=== PATIENT | male | born 1980 | race Two or more races ===

== ENCOUNTER 2017-06-28 17:48 | Emergency (ER) | payer OTHER ==
[~2017-06-28] VITALS: Ht 167.6 cm; Wt 93.0 kg
[~2017-06-28 17:48] MED LIST: AZITHROMYCIN250 MG ORAL; CEPHALEXIN500 MG ORAL; CLINDAMYCIN HC150 MG ORAL; IBUPROFEN600 MG ORAL; NORCO 5-325 TA1 EACH ORAL; PREDNISONE20 MG ORAL; VENTOLIN HFA18 GM INH
[2017-06-28] MEDS ORDERED: Bacitracin Oint UD TOPIC ONE (18:15)
[2017-06-28] MEDS ORDERED: Lidocaine 1% MPF 10mg/ml 5ml INJ ONE (18:15)
[2017-06-28 18:46] VITALS: BP 101/68
[2017-06-28] MEDS ORDERED: CEPHALEXIN500 MG ORAL (18:53)
[2017-06-28] MEDS ORDERED: LAMISIL15 GM TOPIC (18:53)
[2017-06-28] MEDS ORDERED: IBUPROFEN600 MG ORAL (18:53)
[2017-06-28 19:04] VITALS: BP 101/68
--- NOTE | 2017-06-28 20:21 | Emergency Room Report ---
History of Present Illness General Chief Complaint: Animal Bite Source: Patient Present Illness [facility] The patient is a 37-year-old male presenting for possible insect bites on the right hip and burning/itching of the feet. The patient first noticed a burning pain between the toes 1 month prior described as a 7/10 pain. Does not radiate. He also states that it is very itchy. He has not tried any medications yet. He then noticed a red area on the right hip 3 days prior with a central elevation. This has been growing in size. Pain is a 5/10 dull ache and is worse with touch. He is unsure what caused this but states he thinks was a spider. He did not see any insect. He denies any other symptoms including nausea, vomiting, fever, chills, shortness of breath, chest pain Allergies: Coded Allergies: PENICILLINS (Verified Allergy, Mild, 07/23/15) Patient History Past Medical History: see triage record Pertinent Family History: none Reviewed Nursing Documentation: PMH: Agreed, PSxH: Agreed Nursing Documentation-PMH Hx Asthma: Yes History Of Psychiatric Problem: Yes - bipolar Review of Systems All Other Systems: negative except mentioned in HPI Physical Exam Vital Signs Date Time Temp Pulse Resp B/P (MAP) Pulse Ox O2 Delivery O2 Flow Rate FiO2 06/28/17 17:53 98.2 90 101/68 96 Room Air 06/28/17 18:46 14 Sp02 EP Interpretation: reviewed, normal General Appearance: no apparent distress, alert, GCS 15, non-toxic Head: normocephalic, atraumatic Eyes: bilateral eye normal inspection, bilateral eye PERRL ENT: hearing grossly normal, normal pharynx, no angioedema, normal voice Neck: full range of motion, supple/symm/no masses Respiratory: chest non-tender, lungs clear, normal breath sounds, speaking full sentences Cardiovascular #1: regular rate, rhythm, no edema Musculoskeletal: back normal, gait/station normal, normal range of motion, non- tender Neurologic: alert, oriented x3, responsive Psychiatric: judgement/insight normal, memory normal, mood/affect normal, no suicidal/homicidal ideation Skin: rash - 2cm in diameter fluctuant, erythematous mass of R lateral hip. TTP. Central opening, other - maceration with erythematous base between toes Lymphatic: no adenopathy Procedures Incision and Drainage Incision and Drainage : Consent: Verbal Site: R hip Blade Size: 11 I & D Procedure: betadine prep, sterile drapes applied Wound Location: lower extremity - R lateral hip Wound's Depth, Shape: superficial Wound Length (cm): 2 Wound Explored: contaminated Irrigated w/ Saline (ccs): 100 Anesthesia: 1% Lidocaine Volume Anesthetic (ccs): 2 Splint Applied?: No Sling Applied?: No Patient Tolerated: Well Complications: None Medical Decision Making PA Attestation Dr. Leal is my supervising physician. Patient management was discussed with my supervising physician Diagnostic Impression: Primary Impression: Abscess Additional Impression: Tinea pedis Qualified Codes: B35.3 - Tinea pedis ER Course The patient is a 37-year-old male presenting for tinea pedis and abscess Differential diagnosis considered not limited to: Abscess, cellulitis, insect bite, tinea, among others Physical exam reveals tinea pedis and 2 cm in diameter abscess of the right hip with Central fluctuance, Tenderness to palpation, erythema. Betadine prep was used to clean the skin and surrounding area. One percent lidocaine without epinephrine was used to anesthetize the area of planned incision. A #11 blade was used to make an incision in the central area of fluctuance approximately 1/2 the size of the diameter of the abcess. Once the incision was made, purulent material was expressed with blood. Blunt dissection was then used to release loculations and expressed more purulent material. Once only blood appeard to be expressed from the incision, normal saline was used to irrigate the inside of the abscess. The wound was then cleaned and dressing applied. The patient is discharged home with a prescription for Keflex and Lamisil. He will follow up with primary doctor. ER precautions are given Last Vital Signs Date Time Temp Pulse Resp B/P (MAP) Pulse Ox O2 Delivery O2 Flow Rate FiO2 06/28/17 19:04 90 14 101/68 90 Room Air 06/28/17 18:46 98.2 Status: improved Disposition: HOME, SELF-CARE Condition: Improved Scripts Terbinafine (Lamisil At) 12 Gm Cream..g. 1 APPL TOPIC BID for 28 Days, #12 GM 1 Refill Prov: MARGIE LONG P.A. 06/28/17 Cephalexin* (KEFLEX*) 500 Mg Capsule 500 MG ORAL EVERY 12 HOURS, #14 CAP 0 Refills Prov: MARGIE LONG 06/28/17 Ibuprofen* (MOTRIN*) 600 Mg Tablet 600 MG ORAL Q8H Y for For Pain, #30 TAB 0 Refills Prov: MARGIE LONG 06/28/17 Patient Instructions: Abscess, Athlete's Foot Additional Instructions: I discussed my findings with the patient. All questions and concerns have been answered. Treatment and medication compliance have been addressed. I advised the patient that they need to follow up with PMD in 3-5 days. Return to ED if symptoms worsen, new symptoms arise, or if needed for any reason. Patient verbalized understanding of discharge instructions. MARGIE LONG Jun 28, 2017 20:21
== END 2017-06-28 19:10 | disposition home or self-care (01) ==
LOC: EMR 18:16
DX: L02.415 Cutaneous abscess of right lower limb (principal); J45.909 Unspecified asthma, uncomplicated; F31.9 Bipolar disorder, unspecified; Z88.0 Allergy status to penicillin; B35.3 Tinea pedis
CPT/HCPCS: 10060; 99284

== ENCOUNTER 2017-07-19 18:47 | Emergency (ER) | payer OTHER ==
[~2017-07-19] VITALS: Ht 167.6 cm; Wt 97.5 kg
[~2017-07-19 18:47] MED LIST changes: +LAMISIL15 GM TOPIC
[2017-07-19 19:08] VITALS: BP 130/73
[2017-07-19] MEDS ORDERED: CORTISPORIN EAR10 ML RIGHT EAR (19:32)
[2017-07-19] MEDS ORDERED: PROMETHAZI6.25 MG/1 ORAL (19:32)
[2017-07-19] MEDS ORDERED: OMEPRAZOLE20 M2 ORAL (19:32)
[2017-07-19] MEDS ORDERED: PREDNISONE20 MG ORAL (19:32)
[2017-07-19] MEDS ORDERED: AQUAPHOR OINTM396 GM TP (19:32)
[2017-07-19 19:37] VITALS: BP 130/73
--- NOTE | 2017-07-19 22:15 | Emergency Room Report ---
History of Present Illness General Chief Complaint: General Complaint Source: Patient Present Illness HPI The patient is a 37-year-old male Presenting for multiple complaints including dry feet, right ear pain, asthma, and vomiting. He no distress he 1 month prior with cracking of the heels. He denies any other symptoms this area. Right ear pain began 2 days prior described as 8/10 dull ache and does not radiate. Worse with touch. He denies any changes in hearing. Patient states that he has asthma and has been using albuterol only at home which has not been helping. He states that he has been coughing more over the past week. He states that he's also had a burning in the chest with increased clear liquid in his mouth over the past week. He denies being diagnosed with GERD before. He denies any other symptoms including N, F, chills, [place], SOB, rash Allergies: Coded Allergies: PENICILLINS (Verified Allergy, Mild, 07/23/15) Patient History Past Medical History: see triage record Pertinent Family History: none Reviewed Nursing Documentation: PMH: Agreed, PSxH: Agreed Nursing Documentation-PMH Hx Asthma: Yes Review of Systems All Other Systems: negative except mentioned in HPI Physical Exam Vital Signs Date Time Temp Pulse Resp B/P (MAP) Pulse Ox O2 Delivery O2 Flow Rate FiO2 07/19/17 18:55 97.9 85 20 130/73 100 Room Air Sp02 EP Interpretation: reviewed, normal General Appearance: no apparent distress, alert, GCS 15, non-toxic Head: normocephalic, atraumatic Eyes: bilateral eye normal inspection, bilateral eye PERRL ENT: hearing grossly normal, normal pharynx, no angioedema, normal voice, other - R Ear EAC is edematous and erythematous. Tender. Neck: full range of motion, supple/symm/no masses Respiratory: chest non-tender, normal breath sounds, no retraction, no accessory muscle use, speaking full sentences, wheezing - diffuse, mild Cardiovascular #1: regular rate, rhythm, no edema Gastrointestinal: normal bowel sounds, non tender, soft, non-distended, no guarding, no rebound Rectal: deferred Musculoskeletal: back normal, gait/station normal, normal range of motion, non- tender Neurologic: alert, oriented x3, responsive, motor strength/tone normal, sensory intact, speech normal Psychiatric: judgement/insight normal, memory normal, mood/affect normal, no suicidal/homicidal ideation Skin: normal color, no rash, warm/dry, well hydrated Lymphatic: no adenopathy Medical Decision Making PA Attestation Dr. Conner is my supervising physician. Patient management was discussed with my supervising physician Diagnostic Impression: Primary Impression: GERD (gastroesophageal reflux disease) Qualified Codes: K21.9 - Gastro-esophageal reflux disease without esophagitis Additional Impressions: Otitis externa Qualified Codes: H60.501 - Unspecified acute noninfective otitis externa, right ear Dry skin dermatitis Asthma Qualified Codes: J45.909 - Unspecified asthma, uncomplicated ER Course The patient is a 37-year-old male Presenting for multiple complaints including dry feet, right ear pain, asthma, and Acid reflux DDx considered but not limited to: otitis media, otitis externa, pharyngitis, GERD, gastroenteritis, asthma, bronchitis, among others PE consistent with R ear otitis externa, asthma, GERD, and dry skin He is given prescriptions for these including Cortisporin, omeprazole, steroids , cough medication, and moisturizing ointment. Last Vital Signs Date Time Temp Pulse Resp B/P (MAP) Pulse Ox O2 Delivery O2 Flow Rate FiO2 07/19/17 19:08 97.9 85 20 130/73 100 Room Air Status: improved Disposition: HOME, SELF-CARE Condition: Improved Scripts Neomycin/Polymyxin B Sulf/Hc* (CORTISPORIN EAR SOLUTION*) 10 Ml Solution 4 DROP RIGHT EAR QID, #10 ML 0 Refills Prov: TERZIAN,MARGIE P.A. 07/19/17 Promethazine Hcl (PROMETHAZINE HCL*) 6.25 Mg/5 Ml Syrup 5 ML ORAL Q8H, #120 ML 0 Refills Prov: TERZIAN,MARGIE P.A. 07/19/17 Prednisone* (PREDNISONE*) 20 Mg Tablet 40 MG ORAL DAILY, #10 TAB Prov: TERZIAN,MARGIE P.A. 07/19/17 Mineral Oil/Hydrophil Petrolat (AQUAPHOR OINTMENT) 396 Gm Oint...g. 1 APPLIC TP TID, #400 GM Prov: TERZIAN,MARGIE P.A. 07/19/17 Omeprazole (OMEPRAZOLE) 20 Mg Capsule.dr 20 MG ORAL DAILY, #30 CAP Prov: TERZIAN,MARGIE P.A. 07/19/17 Patient Instructions: Asthma, Adult, Otitis Externa Additional Instructions: I discussed my findings with the patient. All questions and concerns have been answered. Treatment and medication compliance have been addressed. I advised the patient that they need to follow up with PMD in 3-5 days. Return to ED if symptoms worsen, new symptoms arise, or if needed for any reason. Patient verbalized understanding of discharge instructions. MARGIE LONG Jul 19, 2017 22:15
== END 2017-07-19 19:37 | disposition home or self-care (01) ==
LOC: EMR 19:16
DX: K21.9 Gastro-esophageal reflux disease without esophagitis (principal); H60.91 Unspecified otitis externa, right ear; L30.9 Dermatitis, unspecified; J45.909 Unspecified asthma, uncomplicated; Z88.0 Allergy status to penicillin
CPT/HCPCS: 99284

== ENCOUNTER 2017-07-21 13:26 | Emergency (ER) | payer OTHER ==
[~2017-07-21] VITALS: Ht 167.6 cm; Wt 97.5 kg
[~2017-07-21 13:26] MED LIST changes: +AQUAPHOR OINTM396 GM TP; +CORTISPORIN EAR10 ML RIGHT EAR; +OMEPRAZOLE20 M2 ORAL; +PROMETHAZI6.25 MG/1 ORAL
[2017-07-21 13:45] VITALS: BP_SYST 116; BP_SYST 118; BP_DIAS 76; BP_DIAS 83
[2017-07-21] MEDS ORDERED: Mylanta II UD 30ml ORAL ONE (14:30)
[2017-07-21] MEDS ORDERED: Lidocaine 2% Visc 15ml soln ORAL ONE (14:30)
--- NOTE | 2017-07-21 14:39 | Emergency Room Report ---
History of Present Illness General Chief Complaint: Nausea Source: Patient Present Illness HPI 37-year-old male presents to the emergency department complaining of multiple episodes of vomiting x2 days with burning sensation 6/10 in severity in the stomach and throat worse with lying flat at night. Patient states he is unable to eat food or medications. Patient states that 2 days ago he was seen here in the emergency department and he is currently being treated for acid reflux in addition to a cough. Patient denies fevers, chills, abdominal pain or abdominal tenderness. Patient denies constipation or diarrhea. Patient denies blood in the vomit or black tarry stools. Patient reports burning sensation mid epigastric area radiating up into his throat. Patient states he is unable to keep down the medications that he was prescribed. Patient also is requesting refill of antifungal medication for jock itch.Pt states that he has had rash x several months. Patient reports itchy rash in the groin but is never fully improved. Patient denies penile discharge, dysuria, hematuria, swollen tender lymph nodes or joint pain. Patient believes that the medications may be causing him to vomit. Denies CP, Palpitations, LOC, AMS, dizziness, Changes in Vision, Sensation, paresthesias, or a sudden severe headache. Allergies: Coded Allergies: PENICILLINS (Verified Allergy, Mild, 07/23/15) Patient History Past Medical History: see triage record Past Surgical History: none Pertinent Family History: none Immunizations: UTD Reviewed Nursing Documentation: PMH: Agreed, PSxH: Agreed Nursing Documentation-PMH Past Medical History: No History, Except For Hx Asthma: Yes Review of Systems All Other Systems: negative except mentioned in HPI Physical Exam Vital Signs Date Time Temp Pulse Resp B/P (MAP) Pulse Ox O2 Delivery O2 Flow Rate FiO2 07/21/17 13:31 98.1 78 18 116/79 99 Room Air Sp02 EP Interpretation: reviewed, normal General Appearance: no apparent distress, alert, GCS 15, non-toxic Head: normocephalic, atraumatic Eyes: bilateral eye normal inspection, bilateral eye PERRL ENT: hearing grossly normal, normal pharynx, no angioedema, normal voice, TMs + canals normal - moderate cerumen noted in the left ear canal. otherwise TM's and canals are WNL, no evidence of infection, moist mucus membranes Neck: full range of motion, supple/symm/no masses Respiratory: chest non-tender, lungs clear, normal breath sounds, no rhonchi, no respiratory distress, speaking full sentences, wheezing - scant bilaterally Cardiovascular #1: regular rate, rhythm, no edema, normal capillary refill Cardiovascular #2: 2+ radial (R), 2+ radial (L) Gastrointestinal: normal bowel sounds, non tender, soft, no guarding, no rebound Rectal: deferred Genitourinary: normal inspection, no CVA tenderness, other - moderate plaque covering the groin area with raised well demarcated boarder, no testicular swelling or erythema, no vessicles, blisters or ulcers, no LAD Musculoskeletal: back normal, gait/station normal, normal range of motion, non- tender Neurologic: alert, oriented x3, responsive, motor strength/tone normal, sensory intact, normal gait, speech normal Psychiatric: judgement/insight normal, memory normal, mood/affect normal Skin: normal color, no rash, warm/dry, well hydrated Lymphatic: no adenopathy Medical Decision Making PA Attestation Dr. Cardona is my supervising Physician whom patient management has been discussed with. Diagnostic Impression: Primary Impression: Gastritis Qualified Codes: K29.00 - Acute gastritis without bleeding Additional Impression: Tinea cruris ER Course 37-year-old male presents to the emergency department complaining of multiple episodes of vomiting x2 days with burning sensation 6/10 in severity in the stomach and throat worse with lying flat at night. Patient states he is unable to eat food or medications. Patient states that 2 days ago he was seen here in the emergency department and he is currently being treated for acid reflux in addition to a cough. Patient denies fevers, chills, abdominal pain or abdominal tenderness. Patient denies constipation or diarrhea. Patient denies blood in the vomit or black tarry stools. Patient reports burning sensation mid epigastric area radiating up into his throat. Patient states he is unable to keep down the medications that he was prescribed. Patient also is requesting refill of antifungal medication for jock itch.Pt states that he has had rash x several months. Patient reports itchy rash in the groin but is never fully improved. Patient denies penile discharge, dysuria, hematuria, swollen tender lymph nodes or joint pain. denies swelling of the LE, or cardiac hx. Patient believes that the medications may be causing him to vomit. Denies CP, Palpitations, LOC, AMS, dizziness, Changes in Vision, Sensation, paresthesias, or a sudden severe headache. -Significant plaque to the groin area. Ddx considered but are not limited to GE, colitis, PUD, CHF, ID, Aortic Dissection, acute appy, SBO, Drug reaction, Tinea, SJS just to name a few. Vital signs: pt. is afebrile, H&PE are most consistent with gastritis, I do not suspect reaction from medications at this time. rash in groin consistent with tinea appearance erythematous raised well demarcated boarder. Pt. is non-toxic in appearance, and appears well hydrated at this time. ORDERS: none required at this time, the diagnosis is clinical ED INTERVENTIONS: -Zofran PO -Zantac, Mylanta, and Lidocaine PO - Zofran IM - oral fluid challenge. Pt. able to tolerate oral fluids and meds after IM injection. Gave pt. strict ED return precautions with worsening or new symptoms, otherwise follow up with PMD in 3-5 days, and Dermatology Evaluation for longstanding rash in the groin. DISCHARGE: At this time pt. is stable for d/c to home. Will provide printed patient care instructions, and any necessary prescriptions. Care plan and follow up instructions have been discussed with the patient prior to discharge. Last Vital Signs Date Time Temp Pulse Resp B/P (MAP) Pulse Ox O2 Delivery O2 Flow Rate FiO2 07/21/17 13:31 98.1 78 18 116/79 99 Room Air Disposition: HOME, SELF-CARE Condition: Stable Scripts Carbamide Peroxide (DEBROX) 15 Ml Drops 5 DROP RIGHT EAR TWICE A DAY for 4 Days, #15 ML 0 Refills Prov: Meagan Palomares 07/21/17 Terbinafine Hcl (ANTIFUNGAL) 30 Gm Cream..g. 1 APPLIC TP BID, #30 GM Prov: Meagan Palomares 07/21/17 Ondansetron Odt* (ZOFRAN ODT*) 4 Mg Tab.rapdis 4 MG ORAL Q6H Y for Nausea & Vomiting, #20 TAB Prov: Meagan Palomares 07/21/17 Patient Instructions: Nausea and Vomiting, Adult Additional Instructions: Take medications as directed. Follow up with a Primary Care Provider in 3-5 days, even if your symptoms have resolved. --Please review list of primary care clinics, if you do not already have a primary care provider Return sooner to ED if new symptoms occur, or current symptoms become worse. - Please note that this Emergency Department Report was dictated using [employer] mounter technology software, occasionally this can lead to erroneous entry secondary to interpretation by the dictation equipment. Meagan Palomares Jul 21, 2017 14:39
[2017-07-21] MEDS ORDERED: ZOFRAN ODT4 MG ORAL ×2 (14:43→23:26)
[2017-07-21] MEDS ORDERED: ANTIFUNGAL30 G2 TP (14:43)
[2017-07-21] MEDS ORDERED: DEBROX15 M1 RIGHT EAR ×2 (15:38→23:26)
[2017-07-21 15:48] VITALS: BP 116/83
[2017-07-22] MEDS ORDERED: PROMETHAZINE-C118 M1 ORAL (01:51)
[2017-07-22] MEDS ORDERED: ALBUTEROL SULF8.5 GM INH (01:51)
[2017-07-22] MEDS ORDERED: PREDNISONE20 MG ORAL (01:51)
== END 2017-07-21 15:48 | disposition home or self-care (01) ==
LOC: EMR 14:04
DX: K29.70 Gastritis, unspecified, without bleeding (principal); B35.6 Tinea cruris; J45.909 Unspecified asthma, uncomplicated; Z88.0 Allergy status to penicillin
CPT/HCPCS: 36415; 71010; 80053; 83690; 85025; 96361; 96372; 96374; 96375; 99284; J2405; 94640; 94664

== ENCOUNTER 2017-07-21 23:16 | Emergency (ER) | payer OTHER ==
[~2017-07-21] VITALS: Ht 167.6 cm; Wt 97.5 kg
[~2017-07-21 23:16] MED LIST changes: +ANTIFUNGAL30 G2 TP; +DEBROX15 M1 RIGHT EAR; +ZOFRAN ODT4 MG ORAL
[2017-07-21] MEDS ORDERED: ZOFRAN ODT4 MG ORAL (23:26)
[2017-07-21] MEDS ORDERED: DEBROX15 M1 RIGHT EAR (23:26)
[2017-07-22 00:28] LABS: BASOPHILS % (AUTO) 1.1 % (0.0-2.0); EOSINOPHILS % (AUTO) 4.2 % (0.0-3.0); LYMPHOCYTES % (AUTO) 33.1 % (20.0-45.0); MEAN CORPUSCULAR HEMOGLOBIN 29.9 PG (27.0-31.0); MEAN CORPUSCULAR HGB CONC 34.4 G/DL (32.0-36.0); MEAN CORPUSCULAR VOLUME 87 FL (80-99); MEAN PLATELET VOLUME 9.7 FL (6.5-10.1); MONOCYTES % (AUTO) 6.8 % (1.0-10.0); NEUTROPHILS % (AUTO) 54.8 % (45.0-75.0); PLATELET COUNT 196 K/UL (150-450); RED BLOOD COUNT 5.15 M/UL (4.70-6.10); RED CELL DISTRIBUTION WIDTH 12.7 % (11.6-14.8); WHITE BLOOD COUNT 10.8 K/UL (4.8-10.8)
[2017-07-22 00:47] LABS: ALANINE AMINOTRANSFERASE 42 U/L (3-41); ALBUMIN/GLOBULIN RATIO 1.6 (1.0-2.7); ANION GAP 14 (5-15); ASPARTATE AMINO TRANSFERASE 35 U/L (5-40); CALCIUM 8.6 mg/dL (8.6-10.2); CARBON DIOXIDE 26 mEQ/L (20-30); CHLORIDE 105 mEQ/L (98-107); GLOMERULAR FILTRATION RATE > 60 mL/min (>60); HEMOLYSIS 9; LIPASE 77 U/L (< 60); POTASSIUM 3.2 mEQ/L (3.4-4.9); SODIUM 145 mEQ/L (135-145); TOTAL PROTEIN 6.8 g/dL (6.6-8.7)
[2017-07-22] MEDS ORDERED: Albuterol ud Inhalation HHN ONE (01:15)
[2017-07-22] MEDS ORDERED: Ipratropium 0.02% Inh Soln 2.5ml UD HHN ONE (01:15)
[2017-07-22 01:25] VITALS: BP 101/64
[2017-07-22] MEDS ORDERED: ALBUTEROL SULF8.5 GM INH (01:51)
[2017-07-22] MEDS ORDERED: PREDNISONE20 MG ORAL (01:51)
[2017-07-22] MEDS ORDERED: PROMETHAZINE-C118 M1 ORAL (01:51)
[2017-07-22 01:55] VITALS: BP 101/64
--- NOTE | 2017-07-22 02:26 | Emergency Room Report ---
History of Present Illness General Chief Complaint: Vomiting Source: Patient Present Illness HPI 37-year-old male presents ED for evaluation. Patient is here complaining of abdominal pain and persistent vomiting and cough. Patient states the symptoms have been going on for the last few days. Has been here a few times a symptoms treated in shortly after the symptoms return. Patient notes epigastric pain, burning, 7/10, nonradiating. Notes dry cough. Patient denies history of asthma. Denies smoking. Denies chest pain. Denies fevers or chills. No other aggravating relieving factors. Denies any other associated symptoms Allergies: Coded Allergies: PENICILLINS (Verified Allergy, Mild, 07/23/15) Patient History Past Medical History: asthma Past Surgical History: none Pertinent Family History: none Social History: Denies: smoking, alcohol use, drug use Immunizations: UTD Reviewed Nursing Documentation: PMH: Agreed, PSxH: Agreed Nursing Documentation-PM Past Medical History: No History, Except For Hx Asthma: Yes Review of Systems All Other Systems: negative except mentioned in HPI Physical Exam Vital Signs Date Time Temp Pulse Resp B/P (MAP) Pulse Ox O2 Delivery O2 Flow Rate FiO2 07/21/17 23:21 98.2 74 16 118/73 98 Room Air Sp02 EP Interpretation: reviewed, normal General Appearance: no apparent distress, alert, GCS 15, non-toxic Head: normocephalic, atraumatic Eyes: bilateral eye normal inspection, bilateral eye PERRL ENT: hearing grossly normal, normal pharynx, no angioedema, normal voice Neck: full range of motion, supple/symm/no masses Respiratory: chest non-tender, lungs clear, normal breath sounds, speaking full sentences Cardiovascular #1: regular rate, rhythm, no edema Cardiovascular #2: 2+ carotid (R), 2+ carotid (L), 2+ radial (R), 2+ radial (L) , 2+ dorsalis pedis (R), 2+ dorsalis pedis (L) Gastrointestinal: normal bowel sounds, non tender, soft, non-distended, no guarding, no rebound Rectal: deferred Genitourinary: normal inspection, no CVA tenderness Musculoskeletal: back normal, gait/station normal, normal range of motion, non- tender Neurologic: alert, oriented x3, responsive, motor strength/tone normal, sensory intact, speech normal Psychiatric: judgement/insight normal, memory normal, mood/affect normal, no suicidal/homicidal ideation Reflexes: 3+ bicep (R), 3+ bicep (L), 3+ tricep (R), 3+ tricep (L), 3+ knee (R) , 3+ knee (L) Skin: normal color, no rash, warm/dry, well hydrated Lymphatic: no adenopathy Medical Decision Making Diagnostic Impression: Primary Impression: Bronchitis Additional Impression: GERD (gastroesophageal reflux disease) Qualified Codes: K21.9 - Gastro-esophageal reflux disease without esophagitis ER Course Hospital Course 37-year-old M presents to ED with epigastric pain with N/V. c/o persistent cough differential diagnosis: gastritis, SBO, cholecystits Clinical course Patient placed on stretcher. On diagnostic cardiac sonographer. After initial history and physical I ordered labs, IV fluids, Zofran and pepcid Labs - no leukocytosis, no electrolyte abnormalities, LFTs normal Chest x-ray unremarkable Patient cough persisting. We will treat with albuterol/Atrovent Upon reassessment, patient states pain and cough has improved Patient denies history of asthma however in medical record there are multiple instances documenting asthma and inhaler use I feel this is a highly complex case requiring extensive working including EKG/ Rhythm strip, Xray/CT/US, Blood/urine lab work, repeat exams while in ED, and administration of strong opiates/narcotics for pain control, admission to hospital or close patient follow up. Diagnosis - bronchitis, GERD Stable and discharged to home with prescriptions for albuterol, prednisone, cough syrup. Followup with PMD. Return to ED if symptoms recur or worsen Labs Test 07/21/17 23:55 White Blood Count 10.8 K/UL (4.8-10.8) Red Blood Count 5.15 M/UL (4.70-6.10) Hemoglobin 15.4 G/DL (14.2-18.0) Hematocrit 44.8 % (42.0-52.0) Mean Corpuscular Volume 87 FL (80-99) Mean Corpuscular Hemoglobin 29.9 PG (27.0-31.0) Mean Corpuscular Hemoglobin Concent 34.4 G/DL (32.0-36.0) Red Cell Distribution Width 12.7 % (11.6-14.8) Platelet Count 196 K/UL (150-450) Mean Platelet Volume 9.7 FL (6.5-10.1) Neutrophils (%) (Auto) 54.8 % (45.0-75.0) Lymphocytes (%) (Auto) 33.1 % (20.0-45.0) Monocytes (%) (Auto) 6.8 % (1.0-10.0) Eosinophils (%) (Auto) 4.2 % (0.0-3.0) Basophils (%) (Auto) 1.1 % (0.0-2.0) Sodium Level 145 mEQ/L (135-145) Potassium Level 3.2 mEQ/L (3.4-4.9) Chloride Level 105 mEQ/L (98-107) Carbon Dioxide Level 26 mEQ/L (20-30) Anion Gap 14 (5-15) Blood Urea Nitrogen 18 mg/dL (7-23) Creatinine 1.0 mg/dL (0.7-1.2) Estimat Glomerular Filtration Rate > 60 mL/min (>60) Glucose Level 111 mg/dL (74-106) Calcium Level 8.6 mg/dL (8.6-10.2) Total Bilirubin 0.3 mg/dL (0.0-1.2) Aspartate Amino Transf (AST/SGOT) 35 U/L (5-40) Alanine Aminotransferase (ALT/SGPT) 42 U/L (3-41) Alkaline Phosphatase 75 U/L (40-129) Total Protein 6.8 g/dL (6.6-8.7) Albumin 4.2 g/dL (3.5-5.2) Globulin 2.6 g/dL Albumin/Globulin Ratio 1.6 (1.0-2.7) Lipase 77 U/L (< 60) Chest X-Ray Diagnostic Results Chest X-Ray Diagnostic Results : Chest X-Ray Ordered: Yes # of Views/Limited/Complete: 1 View Indication: Other - cough EP Interpretation: Yes Interpretation: no consolidation, no effusion, no pneumothorax, no acute cardiopulmonary disease Impression: No acute disease Electronically Signed by: Electronically signed by Eric Stearns MD Last Vital Signs Date Time Temp Pulse Resp B/P (MAP) Pulse Ox O2 Delivery O2 Flow Rate FiO2 07/22/17 01:55 76 14 101/64 100 Room Air 07/22/17 01:25 98.1 Status: improved Disposition: HOME, SELF-CARE Condition: Stable Scripts Codeine/Promethazine Hcl* (PROMETHAZINE-CODEINE SYRUP*) 118 Ml Syrup 5 ML ORAL Q4H Y for For Cough, #118 ML 0 Refills Prov: ERIC STEARNS M.D. 07/22/17 Prednisone* (PREDNISONE*) 20 Mg Tablet 40 MG ORAL DAILY, #10 TAB Prov: ERIC STEARNS M.D. 07/22/17 Albuterol Sulfate* (ALBUTEROL SULFATE MDI*) 8.5 Gm Hfa.aer.ad 2 PUFF INH Q4H Y for cough/wheezing, #1 EA 0 Refills Prov: ERIC STEARNS M.D. 07/22/17 Patient Instructions: Acute Bronchitis, [id number] ERIC STEARNS M.D. Jul 22, 2017 02:26
--- NOTE | 2017-07-22 10:35 | Diagnostic Imaging Report ---
Indication: Dyspnea Comparison: None A single view chest radiograph was obtained. Findings: Cardiomediastinal appearance is within normal limits for age. Pulmonary vascularity is appropriate. The diaphragmatic contour is smooth and costophrenic angles are sharp. No pleural effusions are identified. The bones are unremarkable. Impression: No acute findings
== END 2017-07-22 02:00 | disposition home or self-care (01) ==
LOC: EMR 23:52
DX: J40 Bronchitis, not specified as acute or chronic (principal); K21.9 Gastro-esophageal reflux disease without esophagitis; J45.909 Unspecified asthma, uncomplicated; Z88.0 Allergy status to penicillin
CPT/HCPCS: 36415; 71010; 80053; 83690; 85025; 94640; 94664; 96361; 96374; 96375; 99284; J2405; S0028

== ENCOUNTER 2017-10-19 16:31 | Emergency (ER) | payer OTHER ==
[~2017-10-19] VITALS: Ht 167.6 cm; Wt 81.6 kg
[~2017-10-19 16:31] MED LIST changes: +ALBUTEROL SULF8.5 GM INH; +PROMETHAZINE-C118 M1 ORAL
[2017-10-19] MEDS ORDERED: AZITHROMYCIN250 MG ORAL (17:39)
[2017-10-19] MEDS ORDERED: ALBUTEROL SULF8.5 GM INH (17:39)
[2017-10-19] MEDS ORDERED: PROMETHAZINE-C118 M1 ORAL (17:39)
[2017-10-19] MEDS ORDERED: PREDNISONE20 MG ORAL (17:39)
[2017-10-19] MEDS ORDERED: ZOFRAN ODT4 MG ORAL (17:39)
[2017-10-19 17:45] VITALS: BP 107/66
--- NOTE | 2017-10-19 22:59 | Emergency Room Report ---
History of Present Illness General Chief Complaint: Flu Like Symptoms Source: Patient Present Illness HPI 37-year-old male presents ED complaining of cough x2 weeks. States cough is productive with greenish sputum. Denies fevers. Admits to chills. Denies chest pain or shortness of breath. Denies to contacts or recent travel. No other aggravating relieving factors. Denies any other associated symptoms Allergies: Coded Allergies: PENICILLINS (Verified Allergy, Mild, 07/23/15) Patient History Past Medical History: asthma Past Surgical History: none Pertinent Family History: none Social History: Denies: smoking, alcohol use, drug use Immunizations: UTD Reviewed Nursing Documentation: PMH: Agreed, PSxH: Agreed Nursing Documentation-PMH Past Medical History: No History, Except For Hx Asthma: Yes Review of Systems All Other Systems: negative except mentioned in HPI Physical Exam Vital Signs Date Time Temp Pulse Resp B/P (MAP) Pulse Ox O2 Delivery O2 Flow Rate FiO2 10/19/17 16:35 97.7 83 18 107/66 96 Room Air Sp02 EP Interpretation: reviewed, normal General Appearance: no apparent distress, alert, GCS 15, non-toxic Head: normocephalic, atraumatic Eyes: bilateral eye normal inspection, bilateral eye PERRL ENT: hearing grossly normal, normal pharynx, no angioedema, normal voice Neck: full range of motion, supple/symm/no masses Respiratory: chest non-tender, lungs clear, normal breath sounds, speaking full sentences Cardiovascular #1: regular rate, rhythm, no edema Cardiovascular #2: 2+ carotid (R), 2+ carotid (L), 2+ radial (R), 2+ radial (L) , 2+ dorsalis pedis (R), 2+ dorsalis pedis (L) Gastrointestinal: normal bowel sounds, non tender, soft, non-distended, no guarding, no rebound Rectal: deferred Genitourinary: normal inspection, no CVA tenderness Musculoskeletal: back normal, gait/station normal, normal range of motion, non- tender Neurologic: alert, oriented x3, responsive, motor strength/tone normal, sensory intact, speech normal Psychiatric: judgement/insight normal, memory normal, mood/affect normal, no suicidal/homicidal ideation Reflexes: 3+ bicep (R), 3+ bicep (L), 3+ tricep (R), 3+ tricep (L), 3+ knee (R) , 3+ knee (L) Skin: normal color, no rash, warm/dry, well hydrated Lymphatic: no adenopathy Medical Decision Making Diagnostic Impression: Primary Impression: Atypical pneumonia ER Course Hospital Course 37-year-old male presents to ED complaining of cough x 2 weeks Differential diagnoses include: URI, pharyngitis, otitis media, asthma Clinical course Patient placed on stretcher. After initial history, physical exam reveals a male in no acute distress. Bilateral TM unremarkable. No pharyngeal erythema. No tonsillar exudates. No lymphadenopathy. lungs clear. abdomen soft. Given symptoms x2 weeks we will treat as atypical pneumonia I will prescribe antibiotics Diagnosis - atypical pneumonia Stable and discharged home with Rx zpack, promethazine/codeine, albuterol. Instructed to followup with PMD. Return to ED if symptoms recur or worsen Last Vital Signs Date Time Temp Pulse Resp B/P (MAP) Pulse Ox O2 Delivery O2 Flow Rate FiO2 10/19/17 17:45 97.7 83 18 107/66 96 Room Air Status: improved Disposition: HOME, SELF-CARE Condition: Stable Scripts Ondansetron Odt* (ZOFRAN ODT*) 4 Mg Tab.rapdis 4 MG ORAL Q6H Y for Nausea & Vomiting, #30 TAB 0 Refills Prov: ALTHEA HASTINGS M.D. 10/19/17 Azithromycin* (ZITHROMAX*) 250 Mg Tablet 250 MG ORAL DAILY, #6 TAB 0 Refills Take two tablets by mouth today, then take one tablet by mouth daily for four days Prov: ALTHEA HASTINGS M.D. 10/19/17 Codeine/Promethazine Hcl* (PROMETHAZINE-CODEINE SYRUP*) 118 Ml Syrup 5 ML ORAL Q6H Y for For Cough, #118 ML 0 Refills Prov: ALTHEA HASTINGS M.D. 10/19/17 Prednisone* (PREDNISONE*) 20 Mg Tablet 40 MG ORAL DAILY, #10 TAB Prov: ALTHEA HASTINGS M.D. 10/19/17 Albuterol Sulfate* (ALBUTEROL SULFATE MDI*) 8.5 Gm Hfa.aer.ad 2 PUFF INH Q4H Y for cough/wheezing, #1 EA 0 Refills Prov: ALTHEA HASTINGS M.D. 10/19/17 Referrals: [facility],REFERRING (PCP) Patient Instructions: Community-Acquired Pneumonia, Adult, [id number] ALTHEA HASTINGS M.D. Oct 19, 2017 22:59
== END 2017-10-19 17:45 | disposition home or self-care (01) ==
LOC: EMR 17:30
DX: J18.8 Other pneumonia, unspecified organism (principal); J45.909 Unspecified asthma, uncomplicated; Z88.0 Allergy status to penicillin
CPT/HCPCS: 99284

== ENCOUNTER 2017-12-10 10:35 | Emergency (ER) | payer OTHER ==
[~2017-12-10] VITALS: Ht 167.6 cm; Wt 95.3 kg
[2017-12-10] MEDS ORDERED: PROZAC10 MG ORAL (10:45)
[2017-12-10] MEDS ORDERED: SEROQUEL100 MG ORAL (10:45)
[2017-12-10] MEDS ORDERED: ZANTAC150 MG ORAL (10:45)
[2017-12-10] MEDS ORDERED: ABILIFY2 MG ORAL (10:45)
[2017-12-10] MEDS ORDERED: TESSALON PERLE100 MG ORAL (11:19)
[2017-12-10] MEDS ORDERED: TAMIFLU75 MG ORAL (11:19)
[2017-12-10] MEDS ORDERED: IBUPROFEN600 MG ORAL (11:19)
[2017-12-10] MEDS ORDERED: ALBUTEROL SULF8.5 GM INH (11:19)
[2017-12-10] MEDS ORDERED: Ketorolac 30mg Inj IM ONE (11:30)
[2017-12-10 11:31] VITALS: BP 115/56
--- NOTE | 2017-12-10 13:23 | Emergency Room Report ---
History of Present Illness General Chief Complaint: General Complaint Source: Patient Present Illness HPI 37-year-old male, history of asthma,2 presents with fever, chills, cough, runny nose for 2 days. Cough is productive with green phlegm. Pt still eating/ drinking well. +sick contacts. No recent travel. No SOB, cp, abdominal pain, n/v /d. Has his inhaler but has not needed to use it Allergies: Coded Allergies: PENICILLINS (Verified Allergy, Mild, 07/23/15) Patient History Past Medical History: see triage record Past Surgical History: none Pertinent Family History: none Reviewed Nursing Documentation: PMH: Agreed, PSxH: Agreed Nursing Documentation-PMH Hx Asthma: Yes History Of Psychiatric Problem: Yes - Bipolar, Depression Review of Systems All Other Systems: negative except mentioned in HPI Physical Exam Vital Signs Date Time Temp Pulse Resp B/P (MAP) Pulse Ox O2 Delivery O2 Flow Rate FiO2 12/10/17 10:41 97.8 87 22 115/56 95 Room Air 97.9 Sp02 EP Interpretation: reviewed, normal General Appearance: normal inspection, well appearing, no apparent distress, alert, GCS 15, non-toxic Head: normocephalic, atraumatic Eyes: bilateral eye normal inspection, bilateral eye PERRL, bilateral eye EOMI ENT: normal ENT inspection, normal pharynx, normal voice, moist mucus membranes Neck: normal inspection, full range of motion, supple Respiratory: normal inspection, lungs clear, normal breath sounds, no respiratory distress, no retraction, no wheezing, speaking full sentences, chest symmetrical Cardiovascular #1: normal inspection, regular rate, rhythm, normal capillary refill Cardiovascular #2: 2+ radial (R), 2+ radial (L) Gastrointestinal: normal inspection, non tender, soft, non-distended, no guarding Musculoskeletal: normal inspection, back normal, normal range of motion, non- tender Neurologic: normal inspection, alert, oriented x3, responsive, motor strength/ tone normal, sensory intact, normal gait, speech normal Psychiatric: normal inspection, judgement/insight normal, memory normal Skin: normal inspection, normal color, no rash, warm/dry, well hydrated, normal turgor Medical Decision Making Diagnostic Impression: Primary Impression: Upper respiratory infection ER Course 37-year-old male p/w fever, chills, runny nose, cough Appears non- toxic, well hydrated, tolerating PO DDX: Viral URI / pneumonia Plan: None in Emergency Room ER course: Pt stable in ED, remains nontoxic appearing, no sob. Tolerating PO Disposition: Patient discharged to home with Tessalon Perles and Tamiflu Patient instructed to follow up with PMD in 1 week. Also instructed to take motrin/tylenol at home. Very strict return precautions discussed with patient such as intractable fever and chills, unable to eat or drink, severe chest pain or shortness of breath. Patient verbalized understanding and agrees with plan. Please note that this Emergency Department Report was dictated using [employer] software engineer technology software, occasionally this can lead to erroneous entry secondary to interpretation by the dictation equipment Last Vital Signs Date Time Temp Pulse Resp B/P (MAP) Pulse Ox O2 Delivery O2 Flow Rate FiO2 12/10/17 11:31 97.8 22 115/56 95 Room Air 208.0 12/10/17 10:41 87 Disposition: HOME, SELF-CARE Condition: Improved Scripts Benzonatate* (TESSALON PERLE*) 100 Mg Capsule 100 MG ORAL THREE TIMES A DAY for 7 Days, #21 PERLE Prov: RetinRoslyn mckeon M.D. 12/10/17 Ibuprofen* (MOTRIN*) 600 Mg Tablet 600 MG ORAL THREE TIMES A DAY, #30 TAB 0 Refills Prov: RetinRoslyn [email or web address] 12/10/17 Oseltamivir Phosphate (Tamiflu) 75 Mg Capsule 75 MG ORAL TWICE A DAY for 5 Days, #10 CAP Prov: Roslyn [email or web address] 12/10/17 Albuterol Sulfate* (ALBUTEROL SULFATE MDI*) 8.5 Gm Hfa.aer.ad 2 PUFF INH Q4H Y for cough/wheezing, #1 EA 0 Refills Prov: Roslyn Byers M.D. 12/10/17 Patient Instructions: Upper Respiratory Infection, Adult, [id number] Roslyn Byers M.D. Dec 10, 2017 13:23
== END 2017-12-10 11:32 | disposition home or self-care (01) ==
LOC: EMR 11:15
DX: J06.9 Acute upper respiratory infection, unspecified (principal); J45.909 Unspecified asthma, uncomplicated; F31.9 Bipolar disorder, unspecified; Z88.0 Allergy status to penicillin
CPT/HCPCS: 96372; 99284; J1885

== ENCOUNTER 2017-12-13 09:21 | Emergency (ER) | payer OTHER ==
[~2017-12-13] VITALS: Ht 167.6 cm; Wt 95.3 kg
[~2017-12-13 09:21] MED LIST changes: +ABILIFY2 MG ORAL; +PROZAC10 MG ORAL; +SEROQUEL100 MG ORAL; +TAMIFLU75 MG ORAL; +TESSALON PERLE100 MG ORAL; +ZANTAC150 MG ORAL
[2017-12-13] MEDS ORDERED: Ipratropium 0.02% Inh Soln 2.5ml UD HHN ONE (10:00)
[2017-12-13] MEDS ORDERED: Albuterol ud Inhalation HHN ONE (10:00)
[2017-12-13 10:01] VITALS: BP 127/76
[2017-12-13] MEDS ORDERED: PROMETHAZINE-C118 M1 ORAL (10:37)
[2017-12-13] MEDS ORDERED: ALBUTEROL SULF8.5 GM INH (10:37)
[2017-12-13] MEDS ORDERED: PREDNISONE20 MG ORAL (10:37)
[2017-12-13 10:46] VITALS: BP 127/76
--- NOTE | 2017-12-13 11:22 | Emergency Room Report ---
History of Present Illness General Chief Complaint: Vomiting Source: Patient, Medical Record Present Illness HPI 37-year-old male presents ED for evaluation. Patient presenting with persistent cough x3 days. History of asthma. States his inhaler is not helping. Cough is productive yellowish phlegm. Denies fevers or chills. States his girlfriend also present with similar symptoms. Denies chest pain. No other aggravating relieving factors. Denies any other associated symptoms Allergies: Coded Allergies: PENICILLINS (Verified Allergy, Mild, 07/23/15) Patient History Past Medical History: asthma Past Surgical History: none Pertinent Family History: none Social History: Denies: smoking, alcohol use, drug use Immunizations: UTD Reviewed Nursing Documentation: PMH: Agreed, PSxH: Agreed Nursing Documentation-PMH Hx Asthma: Yes Review of Systems All Other Systems: negative except mentioned in HPI Physical Exam Vital Signs Date Time Temp Pulse Resp B/P (MAP) Pulse Ox O2 Delivery O2 Flow Rate FiO2 12/13/17 09:29 97.7 87 18 127/76 95 Room Air 97.7 Sp02 EP Interpretation: reviewed, normal General Appearance: no apparent distress, alert, GCS 15, non-toxic Head: normocephalic, atraumatic Eyes: bilateral eye normal inspection, bilateral eye PERRL ENT: hearing grossly normal, normal pharynx, no angioedema, normal voice Neck: full range of motion, supple/symm/no masses Respiratory: chest non-tender, normal breath sounds, speaking full sentences, wheezing Cardiovascular #1: regular rate, rhythm, no edema Cardiovascular #2: 2+ carotid (R), 2+ carotid (L), 2+ radial (R), 2+ radial (L) , 2+ dorsalis pedis (R), 2+ dorsalis pedis (L) Gastrointestinal: normal bowel sounds, non tender, soft, non-distended, no guarding, no rebound Rectal: deferred Genitourinary: normal inspection, no CVA tenderness Musculoskeletal: back normal, gait/station normal, normal range of motion, non- tender Neurologic: alert, oriented x3, responsive, motor strength/tone normal, sensory intact, speech normal Psychiatric: judgement/insight normal, memory normal, mood/affect normal, no suicidal/homicidal ideation Reflexes: 3+ bicep (R), 3+ bicep (L), 3+ tricep (R), 3+ tricep (L), 3+ knee (R) , 3+ knee (L) Skin: normal color, no rash, warm/dry, well hydrated Lymphatic: no adenopathy Medical Decision Making Diagnostic Impression: Primary Impression: Bronchitis ER Course Hospital Course 37-year-old male presents to ED complaining of cough, wheezing Differential diagnoses include: URI, bronchitis, asthma/COPD, pneumonia Clinical course Patient placed on stretcher. After initial history and physical I ordered prednisone and nebulizer treatment. Upon reassessment patient states cough and symptoms have improved. Findings consistent with bronchitis. Diagnosis - bronchitis Stable and discharged home with prescriptions for Rx albuterol, prednisone, promethazine/codeine. Instructed to followup with PMD. Return to ED if symptoms recur or worsen Last Vital Signs Date Time Temp Pulse Resp B/P (MAP) Pulse Ox O2 Delivery O2 Flow Rate FiO2 12/13/17 10:46 97.7 18 127/76 100 Room Air 97.7 12/13/17 10:27 93 Status: improved Disposition: HOME, SELF-CARE Condition: Stable Scripts Codeine/Promethazine Hcl* (PROMETHAZINE-CODEINE SYRUP*) 118 Ml Syrup 5 ML ORAL Q6H Y for For Cough, #118 ML 0 Refills Prov: ALTHEA HASTINGS M.D. 12/13/17 Prednisone* (PREDNISONE*) 20 Mg Tablet 40 MG ORAL DAILY, #10 TAB Prov: ALTHEA HASTINGS M.D. 12/13/17 Albuterol Sulfate* (ALBUTEROL SULFATE MDI*) 8.5 Gm Hfa.aer.ad 2 PUFF INH Q6H, #1 EA 0 Refills Prov: ALTHEA HASTINGS M.D. 12/13/17 Referrals: [facility],REFER (PCP) Patient Instructions: Acute Bronchitis, [id number] ALTHEA HASTINGS M.D. Dec 13, 2017 11:21
== END 2017-12-13 10:47 | disposition home or self-care (01) ==
LOC: EMR 09:43
DX: J45.909 Unspecified asthma, uncomplicated (principal); Z88.0 Allergy status to penicillin
CPT/HCPCS: 94640; 94664; 99284; J7512

== ENCOUNTER 2018-02-06 19:45 | Emergency (ER) | payer OTHER ==
[~2018-02-06] VITALS: Ht 167.6 cm; Wt 97.5 kg
[2018-02-06 20:00] VITALS: BP 112/76
[2018-02-06] MEDS ORDERED: Dicyclomine HCl 10mg/5ml oral soln ORAL ONE (20:45)
[2018-02-06] MEDS ORDERED: Lidocaine 2% Visc 15ml soln ORAL ONE (20:45)
[2018-02-06] MEDS ORDERED: Mylanta II UD 30ml ORAL ONE (20:45)
[2018-02-06] MEDS ORDERED: RANITIDINE HCL150 MG ORAL (21:02)
[2018-02-06] MEDS ORDERED: DICYCLOMINE HCL10 MG PO (21:02)
[2018-02-06] MEDS ORDERED: ZOFRAN ODT4 MG ORAL (21:02)
[2018-02-06 21:10] VITALS: BP 112/76
--- NOTE | 2018-02-07 13:47 | Emergency Room Report ---
History of Present Illness General Chief Complaint: Abdominal Pain Source: Patient Present Illness HPI 37-year-old male presents ED for evaluation. States last 3 days he's been experiencing abdominal pain with vomiting and diarrhea. Pain is cramping, 6 out of 10, nonradiating. Notes multiple episodes of watery loose stool and vomiting. Afebrile. Denies recent travel. Denies recent antibiotic use. No other aggravating relieving factors. Denies any other associated symptoms Allergies: Coded Allergies: PENICILLINS (Verified Allergy, Mild, 07/23/15) Patient History Past Medical History: asthma, GERD Past Surgical History: none Pertinent Family History: none Social History: Denies: smoking, alcohol use, drug use Immunizations: UTD Reviewed Nursing Documentation: PMH: Agreed; PSxH: Agreed Nursing Documentation-PMH Hx Asthma: Yes Review of Systems All Other Systems: negative except mentioned in HPI Physical Exam Vital Signs Date Time Temp Pulse Resp B/P (MAP) Pulse Ox O2 Delivery O2 Flow Rate FiO2 02/06/18 19:47 98.5 111 16 117/78 93 Room Air 98.4 Sp02 EP Interpretation: reviewed, normal General Appearance: no apparent distress, alert, GCS 15, non-toxic Head: normocephalic, atraumatic Eyes: bilateral eye normal inspection, bilateral eye PERRL ENT: hearing grossly normal, normal pharynx, no angioedema, normal voice Neck: full range of motion, supple/symm/no masses Respiratory: chest non-tender, lungs clear, normal breath sounds, speaking full sentences Cardiovascular #1: regular rate, rhythm, no edema Cardiovascular #2: 2+ carotid (R), 2+ carotid (L), 2+ radial (R), 2+ radial (L) , 2+ dorsalis pedis (R), 2+ dorsalis pedis (L) Gastrointestinal: normal bowel sounds, non tender, soft, non-distended, no guarding, no rebound Rectal: deferred Genitourinary: normal inspection, no CVA tenderness Musculoskeletal: back normal, gait/station normal, normal range of motion, non- tender Neurologic: alert, oriented x3, responsive, motor strength/tone normal, sensory intact, speech normal Psychiatric: judgement/insight normal, memory normal, mood/affect normal, no suicidal/homicidal ideation Reflexes: 3+ bicep (R), 3+ bicep (L), 3+ tricep (R), 3+ tricep (L), 3+ knee (R) , 3+ knee (L) Skin: normal color, no rash, warm/dry, well hydrated Lymphatic: no adenopathy Medical Decision Making Diagnostic Impression: Primary Impression: Gastroenteritis ER Course Hospital Course 34-year-old M presents to ED with cramping abdominal pain with vomiting, diarrhea differential diagnosis: gastritis, SBO, cholecystits, gastroenteritis Clinical course Patient placed on stretcher. On cardiac technologist. After initial history, physical exam reveals male in no acute distress. Abdomen soft. Good capillary refill. Vital stable. Mucous membranes moist. I offered labs and IV hydration but patient states he is okay with receiving Zofran injection, by mouth pepcid and GI cocktail Upon reassessment, patient states pain has improved. findings consistent with gastroenteritis I feel this is a highly complex case requiring extensive working including EKG/ Rhythm strip, Xray/CT/US, Blood/urine lab work, repeat exams while in ED, and administration of strong opiates/narcotics for pain control, admission to hospital or close patient follow up. Diagnosis - gastroenteritis Stable and discharged to home with prescriptions for Zantac, zofran, bentyl . Followup with PMD. Return to ED if symptoms recur or worsen Last Vital Signs Date Time Temp Pulse Resp B/P (MAP) Pulse Ox O2 Delivery O2 Flow Rate FiO2 02/06/18 21:10 98 16 112/76 95 Room Air 02/06/18 20:00 98.4 98.4 Status: improved Disposition: HOME, SELF-CARE Condition: Stable Scripts Dicyclomine Hcl* (DICYCLOMINE HCL*) 10 Mg Capsule 10 MG PO QID, #20 CAP Prov: Eric Stearns MD 02/06/18 Ondansetron Odt* (ZOFRAN ODT*) 4 Mg Tab.rapdis 4 MG ORAL Q6H PRN for Nausea & Vomiting, #30 TAB 0 Refills Prov: Eric Stearns MD 02/06/18 Ranitidine Hcl* (ZANTAC*) 150 Mg Tablet 150 MG ORAL TWICE A DAY, #30 TAB Prov: Eric Stearns MD 02/06/18 Patient Instructions: Viral Gastroenteritis, Adult, [id number] Eric Stearns MD Feb 07, 2018 13:47
== END 2018-02-06 21:10 | disposition home or self-care (01) ==
LOC: EMR 20:05
DX: K52.9 Noninfective gastroenteritis and colitis, unspecified (principal); J45.909 Unspecified asthma, uncomplicated; K21.9 Gastro-esophageal reflux disease without esophagitis; Z88.0 Allergy status to penicillin
CPT/HCPCS: 96372; 99284; J2405

== ENCOUNTER 2018-03-27 19:34 | Emergency (ER) | payer OTHER ==
[~2018-03-27] VITALS: Ht 167.6 cm; Wt 99.8 kg
[~2018-03-27 19:34] MED LIST changes: +DICYCLOMINE HCL10 MG PO; +RANITIDINE HCL150 MG ORAL
[2018-03-27] MEDS ORDERED: PROMETHAZI6.25 MG/1 ORAL (20:15)
[2018-03-27] MEDS ORDERED: Lidocaine 2% Visc 15ml soln ORAL ONE (20:15)
[2018-03-27] MEDS ORDERED: Acetaminophen 500mg (ES) tab ORAL ONE (20:15)
[2018-03-27] MEDS ORDERED: TYLENOL EXTRA500 MG ORAL (20:16)
--- NOTE | 2018-03-27 20:19 | Emergency Room Report ---
History of Present Illness General Chief Complaint: Flu Like Symptoms Source: Patient Present Illness HPI 37-year-old male patient presents to ER complaining of cough for the past 4 days. Reports cough with yellow sputum, denies hemoptysis. Reports sore throat and chest pain sx during cough, states pain and chest is worse when lying down. Reports able to eat and drink but painful to do so. Denies history of cardiovascular disease. Reports history of asthma, denies difficulty breathing or shortness of breath, states he has been using his inhaler. denies taking any other medications during this time. Denies smoking. Denies fever, abdominal pain, vomiting, diarrhea. Allergies: Coded Allergies: PENICILLINS (Verified Allergy, Mild, 07/23/15) Patient History Past Medical History: see triage record Reviewed Nursing Documentation: PMH: Agreed; PSxH: Agreed Nursing Documentation-PMH Hx Asthma: Yes Review of Systems All Other Systems: negative except mentioned in HPI Physical Exam Vital Signs Date Time Temp Pulse Resp B/P (MAP) Pulse Ox O2 Delivery O2 Flow Rate FiO2 03/27/18 19:39 98.6 80 18 115/79 97 Room Air 98.6 Sp02 EP Interpretation: reviewed, normal General Appearance: well appearing, no apparent distress, alert, GCS 15, non- toxic Head: normocephalic, atraumatic Eyes: bilateral eye normal inspection, bilateral eye PERRL ENT: hearing grossly normal, normal pharynx, no angioedema, normal voice, TMs + canals normal, uvula midline, moist mucus membranes Neck: full range of motion Respiratory: lungs clear, normal breath sounds, no rhonchi, no respiratory distress, no accessory muscle use, no wheezing, speaking full sentences, other - chest TTP over sternum Cardiovascular #1: regular rate, rhythm, no edema Musculoskeletal: back normal, digits/nails normal, gait/station normal, normal range of motion, non-tender Neurologic: alert, oriented x3, responsive, motor strength/tone normal, sensory intact Psychiatric: mood/affect normal Skin: no rash Lymphatic: no adenopathy Medical Decision Making PA Attestation Dr. Etienne is my supervising Physician whom patient management has been discussed with. Diagnostic Impression: Primary Impression: Upper respiratory infection ER Course Pt presents to ED c/o cough. DDX considered but are not limited to influenza, viral URI, pneumonia, strep throat, rhinitis, sinusitis, otitis media. On PE, chest is TTP; chest pain likely musculoskeletal in nature secondary to cough, does not require cardiac workup at this time. Patient instructed to take NSAIDs as needed for pain symptoms. Lungs clear to auscultation, patient afebrile, low suspicion for pneumonia. Due to hx of asthma and pain symptoms, will order CXR to rule out underlying pathology. VITAL SIGNS are WNL, patient is afebrile Ordered viscous lidocaine, Tylenol and cough medication. ER COURSE: Lungs clear to auscultation, no wheezes, rhonci or rales. cough likely causing symptoms of sore throat. Likely viral etiology of symptoms. Symptomatic treatment. drink plenty of fluids. Patient able to tolerate PO fluids in the ER. Followup with PCP for further treatment and/or referral as needed. ER precautions given. Continue to take asthma medications as needed for breathing symptoms. CXR negative for acute disease. DISCHARGE: -Rx given for Tylenol/Acetaminophen -Rx given for Promethazine syrup for cough sx. At this time pt is stable for d/c to home. Patient is resting comfortably, in no acute distress, nontoxic appearing. Patient to take medications as instructed Will provide with patient care instructions and any necessary prescriptions. Care plan and follow-up instructions provided. Patient instructed to follow-up with primary care provider in 3 - 5 days. Patient questions asked and answered. Patient reports understanding and agreement to treatment plan. ER precautions given. Patient instructed to return to ER immediately for any new or worsening of symptoms including but not limited to increasing SOB, persistent fever, intractable vomiting. - Please note that this Emergency Department Report was dictated using [employer]ologist technology software, occasionally this can lead to erroneous entry secondary to interpretation by the dictation equipment. Chest X-Ray Diagnostic Results Chest X-Ray Diagnostic Results : Chest X-Ray Ordered: Yes # of Views/Limited/Complete: 1 View Indication: Chest Pain EP Interpretation: Yes OLI Xray: Interpretation reviewed, by supervising MD, and agrees with findings. Interpretation: no consolidation, no effusion, no pneumothorax, no acute cardiopulmonary disease Impression: No acute disease OLI Scribe Text Charanjit Wellington PA-C Last Vital Signs Date Time Temp Pulse Resp B/P (MAP) Pulse Ox O2 Delivery O2 Flow Rate FiO2 03/27/18 19:48 80 18 Room Air 03/27/18 19:39 98.6 115/79 97 98.6 Disposition: HOME, SELF-CARE Condition: Stable Scripts Acetaminophen* (TYLENOL EXTRA STRENGTH*) 500 Mg Tablet 500 MG ORAL Q8H PRN for Prn Headache/Temp > 101, #30 TAB 0 Refills Prov: Sebastian Wellington 03/27/18 Promethazine Hcl (PROMETHAZINE HCL*) 6.25 Mg/5 Ml Syrup 5 ML ORAL Q8H, #120 ML 0 Refills Prov: Sebastian Wellington 03/27/18 Referrals: NON PHYSICIAN (PCP) Patient Instructions: Costochondritis, [id number], Upper Respiratory Infection, Adult, [id number] Additional Instructions: Followup with primary care provider in 3 -5 days. Take medications as directed. Take Tylenol for chest pain symptoms. Patient questions asked and answered. ER precautions given, patient instructed to return to ER immediately for any new or worsening of symptoms including but not limited to chest pain, shortness of breath, intractable vomiting. Sebastian Wellington Mar 27, 2018 20:18
[2018-03-27 21:04] VITALS: BP 115/79
--- NOTE | 2018-03-28 12:33 | Diagnostic Imaging Report ---
Indication: Chest pain Comparison: July 22, 2017 A single view chest radiograph was obtained. Findings: Cardiomediastinal appearance is within normal limits for age. There is minimal atelectasis versus scarring at the left lung base unchanged. Pulmonary vascularity is appropriate. The diaphragmatic contour is smooth and costophrenic angles are sharp. No pleural effusions are identified. The bones are unremarkable. Impression: No acute findings
== END 2018-03-27 21:05 | disposition home or self-care (01) ==
LOC: EMR 19:49
DX: J06.9 Acute upper respiratory infection, unspecified (principal); J45.909 Unspecified asthma, uncomplicated; Z88.0 Allergy status to penicillin
CPT/HCPCS: 71045; 96372; 99284; J2550

== ENCOUNTER 2018-03-29 07:09 | Emergency (ER) | payer OTHER ==
[~2018-03-29] VITALS: Ht 167.6 cm; Wt 97.5 kg
[~2018-03-29 07:09] MED LIST changes: +TYLENOL EXTRA500 MG ORAL
[2018-03-29] MEDS ORDERED: PROZAC10 MG ORAL (07:16)
--- NOTE | 2018-03-29 07:28 | Emergency Room Report ---
History of Present Illness General Chief Complaint: General Complaint Source: Patient Present Illness HPI Patient is a 37-year-old male presents after increased cough and congestion. Patient reports having gradual onset of symptoms. He reports having had a continued sore throat. The patient reports having episodes of coughing fits. He denies any fever. Patient had recently been seen and had negative chest x- ray in this emergency department.The patient denies any smoking history. He has prior history of asthma and takes albuterol daily. Allergies: Coded Allergies: PENICILLINS (Verified Allergy, Mild, 07/23/15) Patient History Past Medical History: see triage record Reviewed Nursing Documentation: PMH: Agreed; PSxH: Agreed Nursing Documentation-PMH Hx Asthma: Yes Review of Systems All Other Systems: negative except mentioned in HPI Physical Exam Vital Signs Date Time Temp Pulse Resp B/P (MAP) Pulse Ox O2 Delivery O2 Flow Rate FiO2 03/29/18 07:12 98.5 84 17 124/80 95 Room Air 98.4 General Appearance: well appearing, no apparent distress, alert, GCS 15, obese Head: normocephalic, atraumatic ENT: hearing grossly normal, normal voice Neck: full range of motion, supple Respiratory: no respiratory distress, speaking full sentences, wheezing Gastrointestinal: normal inspection, normal bowel sounds, non tender, other - umbilical hernia, reducible Musculoskeletal: normal inspection, no calf tenderness Neurologic: normal inspection, alert, oriented x3, normal gait Psychiatric: mood/affect normal Skin: no rash Medical Decision Making Diagnostic Impression: Primary Impression: Bronchitis Additional Impression: GERD (gastroesophageal reflux disease) ER Course Patient presented for sore throat. Differential diagnosis included but was not limited to viral pharyngitis, meningitis, exudative tonsillitis, retropharyngeal abscess, epiglottitis, strep pharyngitis.Patient was noted to have some wheezing and was given breathing treatment for asthma.Patient does not show any evidence of respiratory distress. patient appears to have a viral respiratory infection. The patient was noted to have a umbilical hernia defect without any evidence of herniated bowel. Patient was advised outpatient general surgery evaluation.Soft tissue neck to views interpreted by me showed normal bony alignment without evident fracture with unremarkable prevertebral soft tissue. The patient was given breathing treatment with improvement in his cough. Patient was given prescription for cough suppressant. The patient was advised to follow-up with primary care physician in one to 2 days for reexamination. Last Vital Signs Date Time Temp Pulse Resp B/P (MAP) Pulse Ox O2 Delivery O2 Flow Rate FiO2 03/29/18 07:12 98.5 84 17 124/80 95 Room Air 98.4 Status: improved Disposition: HOME, SELF-CARE Condition: Stable Scripts Guaifenesin/Dextromethorphan (Guaifenesin Dm Syrup) 5 Ml Syrup 1 TSP ORAL Q8H, #118 ML 0 Refills Prov: Levy Conner MD 03/29/18 Levy Conner MD Mar 29, 2018 07:28
[2018-03-29] MEDS ORDERED: Albuterol/Ipratropium 3ml neb HHN ONE (07:30)
[2018-03-29] MEDS ORDERED: GUAIFENESIN DM118 M1 ORAL (08:16)
[2018-03-29 08:21] VITALS: BP 124/80
--- NOTE | 2018-03-29 08:57 | Diagnostic Imaging Report ---
SOFT TISSUE NECK, 2 views INDICATION: Pain COMPARISON: None FINDINGS: Multiple views of the neck are obtained. Tiny anterior osteophytes. Bilateral facet arthropathy. The prevertebral soft tissues are within normal limits. Epiglottis is normal thickness. No obvious radiopaque foreign body. Vertebral body heights and disk spaces are preserved. IMPRESSION: Degenerative changes of the cervical spine.
== END 2018-03-29 08:20 | disposition home or self-care (01) ==
LOC: EMR 07:29
DX: J40 Bronchitis, not specified as acute or chronic (principal); K21.9 Gastro-esophageal reflux disease without esophagitis; J45.909 Unspecified asthma, uncomplicated; Z88.0 Allergy status to penicillin
CPT/HCPCS: 70360; 94640; 94664; 99283; J7620

== ENCOUNTER 2018-06-02 15:20 | Emergency (ER) | payer OTHER ==
[~2018-06-02] VITALS: Ht 167.6 cm; Wt 95.3 kg
[~2018-06-02 15:20] MED LIST changes: +GUAIFENESIN DM118 M1 ORAL
[2018-06-02 15:51] VITALS: BP 116/78
[2018-06-02] MEDS ORDERED: CORTISPORIN EAR10 ML LEFT EAR (16:13)
--- NOTE | 2018-06-02 16:13 | Emergency Room Report ---
History of Present Illness General Chief Complaint: Earache Source: Patient Present Illness HPI 38-year-old male patient presents ER complaining of left ear pain for the past few days. Denies recent swimming injury. Denies drainage. Reports use patient and peroxide attempted to clean out wax. Denies hearing loss. Denies fever, chest pain, shortness of breath, other acute symptoms. reports history of ear infections. Allergies: Coded Allergies: PENICILLINS (Verified Allergy, Mild, 07/23/15) Patient History Past Medical History: see triage record Reviewed Nursing Documentation: PMH: Agreed; PSxH: Agreed Nursing Documentation-PMH Past Medical History: No History, Except For Hx Asthma: Yes Review of Systems All Other Systems: negative except mentioned in HPI Physical Exam Vital Signs Date Time Temp Pulse Resp B/P (MAP) Pulse Ox O2 Delivery O2 Flow Rate FiO2 06/02/18 15:33 98.2 96 18 116/78 98 Room Air 98.2 Sp02 EP Interpretation: reviewed, normal General Appearance: well appearing, no apparent distress, alert, GCS 15, non- toxic Head: normocephalic, atraumatic Eyes: bilateral eye normal inspection, bilateral eye PERRL ENT: hearing grossly normal, normal pharynx, no angioedema, normal voice, TMs + canals normal - right ear, uvula midline, moist mucus membranes, other - left ear: Pain with ear pulling, erythematous and edematous canal, TM intact Neck: full range of motion Respiratory: lungs clear, normal breath sounds, no rhonchi, no respiratory distress, no accessory muscle use, no wheezing, speaking full sentences Cardiovascular #1: regular rate, rhythm, no edema Psychiatric: mood/affect normal Skin: no rash Lymphatic: no adenopathy Medical Decision Making PA Attestation Dr. Sofia is my supervising Physician whom patient management has been discussed with. Diagnostic Impression: Primary Impression: Otitis externa ER Course Pt presents to ED c/o ear pain. DDX considered but are not limited to rhinitis, sinusitis, otitis media, otitis externa, cellulitis, mastoiditis, cerumen impaction. Low suspicion for mastoiditis, no swelling or erythema noted posterior to ear, no TTP. VITAL SIGNS are WNL, patient is afebrile. ER COURSE: physical exam consistent with otitis externa, unable to visualize TM, does not require craniotomy. This time. No TM rupture, non-erythematous without effusion. don't use Q-tips, avoid swimming, follow-up with PCP and get referral to ENT specialist. DISCHARGE: -Rx provided for Neomycin/polmyxin B At this time pt is stable for d/c to home.resting comfortably, no acute distress , nontoxic appearing, discharged home. Patient to take medications as instructed Will provide with patient care instructions and any necessary prescriptions. Care plan and follow-up instructions provided. Patient instructed to follow-up with primary care in 3 - 5 days. Patient provided with list of clinics to establish care if unable to contact current PCP. Patient questions asked and answered. ER precautions given. Patient instructed to return to ER immediately for any new or worsening of symptoms including but not limited to increasing SOB, persistent fever. - Please note that this Emergency Department Report was dictated using Outskicomputer repair technician technology software, occasionally this can lead to erroneous entry secondary to interpretation by the dictation equipment. Last Vital Signs Date Time Temp Pulse Resp B/P (MAP) Pulse Ox O2 Delivery O2 Flow Rate FiO2 06/02/18 15:51 98.2 84 18 116/78 98 Room Air 98.2 Disposition: HOME, SELF-CARE Condition: Stable Scripts Neomycin/Polymyxin B Sulf/Hc* (CORTISPORIN EAR SOLUTION*) 10 Ml Solution 4 DROP LEFT EAR QID, #10 ML 0 Refills Prov: Sebastian Wellington 06/02/18 Referrals: [facility],REFERRING (PCP) Patient Instructions: Otitis Externa, [id number] Additional Instructions: Followup with primary care provider in 3 -5 days. Request referral to ENT. avoid swimming. Do not use hydrogen peroxide in ears. Take medications as directed. Patient questions asked and answered. ER precautions given, patient instructed to return to ER immediately for any new or worsening of symptoms. Sebastian Wellington Jun 02, 2018 16:13
[2018-06-02 16:26] VITALS: BP 116/78
== END 2018-06-02 16:27 | disposition home or self-care (01) ==
LOC: EMR 15:52
DX: H60.92 Unspecified otitis externa, left ear (principal); J45.909 Unspecified asthma, uncomplicated; Z88.0 Allergy status to penicillin
CPT/HCPCS: 99283

== ENCOUNTER 2018-10-15 16:52 | Emergency (ER) | payer OTHER ==
[~2018-10-15] VITALS: Ht 167.6 cm; Wt 98.9 kg
[~2018-10-15 16:52] MED LIST changes: +CORTISPORIN EAR10 ML LEFT EAR
[2018-10-15 17:02] VITALS: BP 126/78
[2018-10-15] MEDS ORDERED: Albuterol ud Inhalation HHN ONE (17:15)
[2018-10-15] MEDS ORDERED: Ipratropium 0.02% Inh Soln 2.5ml UD HHN ONE (17:15)
--- NOTE | 2018-10-15 17:16 | Emergency Room Report ---
History of Present Illness General Chief Complaint: Asthma Source: Patient Present Illness HPI Patient just with malaise of cough and wheezing over the past one and a half weeks denies any headache denies any chest pain Denies any back or flank pain Patient is here with significant other who reports the flu has been going around Patient also has a mild sore throat Denies any neck pain or photophobia His breathing is somewhat improved with the inhalers however as the cough persisted he presents to the ER Denies any recent travel denies any pleurisy Allergies: Coded Allergies: PENICILLINS (Verified Allergy, Mild, 07/23/15) Patient History Past Medical History: see triage record Pertinent Family History: none Reviewed Nursing Documentation: PMH: Agreed; PSxH: Agreed Nursing Documentation-PMH Past Medical History: No History, Except For Hx Asthma: Yes Review of Systems All Other Systems: negative except mentioned in HPI Physical Exam Vital Signs Date Time Temp Pulse Resp B/P (MAP) Pulse Ox O2 Delivery O2 Flow Rate FiO2 10/15/18 17:02 98.4 104 21 126/78 97 Room Air Sp02 EP Interpretation: reviewed, normal General Appearance: well appearing, no apparent distress Head: normocephalic, atraumatic Eyes: bilateral eye PERRL, bilateral eye EOMI ENT: hearing grossly normal, normal pharynx, TMs + canals normal, uvula midline Neck: full range of motion, supple, no meningismus, no bony tend Respiratory: no rhonchi, no respiratory distress, no retraction, no accessory muscle use, wheezing - Very fine wheezing both lower lobes Cardiovascular #1: normal peripheral pulses, regular rate, rhythm, no edema, no gallop, no JVD, no murmur Gastrointestinal: normal bowel sounds, non tender, soft, no mass, no organomegaly, non-distended, no guarding, no hernia, no pulsatile mass, no rebound Genitourinary: no CVA tenderness Musculoskeletal: normal inspection Neurologic: oriented x3, responsive, engineering clerk III-XII nml as tested, motor strength/ tone normal, sensory intact Psychiatric: mood/affect normal Skin: normal color, no rash, warm/dry, palpation normal Lymphatic: normal inspection, no adenopathy Medical Decision Making Diagnostic Impression: Primary Impression: Asthma attack ER Course Multiple differentials considered including but not limited to, flu, pneumonia, upper respiratory infection Given the patient's lung sounds and history patient appears to have a flareup of his asthma attack at this time feels significantly improved after acute intervention And is stable for close outpatient follow-up Last Vital Signs Date Time Temp Pulse Resp B/P (MAP) Pulse Ox O2 Delivery O2 Flow Rate FiO2 10/15/18 17:02 98.4 104 21 126/78 97 Room Air Status: improved Disposition: HOME, SELF-CARE Condition: Improved Scripts Dextromethorphan Hb/Doxylamine (ROBITUSSIN NIGHTTIME COUGH DM) 237 Ml Liquid 10 ML PO DAILY for 5 Days, ML Prov: Ирина Etienne DO 10/15/18 Methylprednisolone (Methylprednisolone*) 4MG Dspk 4 MG ORAL DIRECTED for 6 Days, #21 EA 0 Refills Day 1: Two tablets before breakfast, one after lunch, one after dinner, and two at bedtime. If started late in the day, take all six tablets at once or divide into two or three doses, unless otherwise directed by prescriber. Day 2: One tablet before breakfast, one after lunch, one after dinner, and two at bedtime Day 3: One tablet before breakfast, one after lunch, one after dinner, and one at bedtime Day 4: One tablet before breakfast, one after lunch, and one at bedtime Day 5: One tablet before breakfast and one at bedtime Day 6: One tablet before breakfast Prov: Ирина Etienne DO 10/15/18 Albuterol Sulfate* (ALBUTEROL SULFATE MDI*) 8.5 Gm Hfa.aer.ad 2 PUFF INH Q6H, #1 EA 0 Refills Prov: Ирина Etienne DO 10/15/18 Additional Instructions: Patient is provided with the discharge instructions notified to follow up with primary doctor in the next 2-3 days otherwise return to the er with any worsening symptoms. Please note that this report is being documented using Wannado technology. This can lead to erroneous entry secondary to incorrect interpretation by the dictating instrument. Ирина Etienne DO Oct 15, 2018 17:16
[2018-10-15] MEDS ORDERED: ROBITUSSIN NIG237 ML PO (18:22)
[2018-10-15] MEDS ORDERED: MEDROL DOSEPAK4 MG ORAL (18:22)
[2018-10-15] MEDS ORDERED: ALBUTEROL SULF8.5 GM INH (18:22)
[2018-10-15 18:27] VITALS: BP 132/80
== END 2018-10-15 18:27 | disposition home or self-care (01) ==
LOC: EMR 18:11
DX: J45.909 Unspecified asthma, uncomplicated (principal); Z88.0 Allergy status to penicillin
CPT/HCPCS: 94640; 94664; 99284; J7512

== ENCOUNTER 2018-10-19 15:12 | Emergency (ER) | payer OTHER ==
[~2018-10-19] VITALS: Ht 167.6 cm; Wt 98.9 kg
[~2018-10-19 15:12] MED LIST changes: +MEDROL DOSEPAK4 MG ORAL; +ROBITUSSIN NIG237 ML PO
--- NOTE | 2018-10-19 15:39 | NUR ---
ED Nurse Note: Pt came in w/ complaints of coughing x 3 days. Pt states that he coughs so hard to the point of vomiting. He states he cannot hold any food down. Nauseous and vomiting. No diarrhea. Complaining of 7/10 pain non radiating whenever he coughs. Skin warm to touch. Face red. A + O x4. Pt was here a couple days ago and was given a breathing tx. Ambulatory. at the bedside.
[2018-10-19 15:41] VITALS: BP 105/62
[2018-10-19] MEDS: Albuterol ud Inhalation HHN SCH ×3 (16:01→16:20)
[2018-10-19] MEDS: Ipratropium 0.02% Inh Soln 2.5ml UD HHN SCH ×3 (16:01→16:20)
--- NOTE | 2018-10-19 16:03 | NUR ---
ED Nurse Note: RT at the bedside completing breathing tx.
--- NOTE | 2018-10-19 16:05 | NUR ---
ED Nurse Note: Insufficient amount of prednisone in pyxis. Notified pharmacy. Waiting.
--- NOTE | 2018-10-19 16:39 | NUR ---
ED Nurse Note: Xray at the bedside.
[2018-10-19] MEDS ORDERED: PROMETHAZINE-C118 M1 ORAL (17:04)
[2018-10-19 17:19] VITALS: BP 120/69
--- NOTE | 2018-10-19 17:20 | NUR ---
ED Nurse Note: Discharge instructions given to pt. Answered all questions. Verbalized understansing. ID band removed. Left ER with steady gait. A + O x4. No acute distress noted.
--- NOTE | 2018-10-19 17:48 | Emergency Room Report ---
History of Present Illness General Chief Complaint: Upper Respiratory Illness Source: Patient, Medical Record Present Illness HPI 38-year-old male presents ED for evaluation. Complaining of cough and congestion and wheezing. Started about a week ago. States he was seen in the ER 4 days ago. Was given medications but states his symptoms have not improved. Denies fevers or chills. Denies chest pain. States he did receive the flu shot this year. No other aggravating relieving factors. Denies any other associated symptoms Allergies: Coded Allergies: PENICILLINS (Verified Allergy, Mild, 07/23/15) Patient History Past Medical History: asthma, psych hx Past Surgical History: none Pertinent Family History: none Social History: Denies: smoking, alcohol use, drug use Immunizations: UTD Reviewed Nursing Documentation: PMH: Agreed; PSxH: Agreed Nursing Documentation-PMH Hx Asthma: Yes History Of Psychiatric Problem: Yes - Bipolar, Depression Review of Systems All Other Systems: negative except mentioned in HPI Physical Exam Vital Signs Date Time Temp Pulse Resp B/P (MAP) Pulse Ox O2 Delivery O2 Flow Rate FiO2 10/19/18 15:24 98.4 96 15 124/81 93 Room Air 10/19/18 15:41 98 Sp02 EP Interpretation: reviewed, normal General Appearance: no apparent distress, alert, GCS 15, non-toxic Head: normocephalic, atraumatic Eyes: bilateral eye normal inspection, bilateral eye PERRL ENT: hearing grossly normal, normal pharynx, no angioedema, normal voice Neck: full range of motion, supple/symm/no masses Respiratory: chest non-tender, speaking full sentences, wheezing Cardiovascular #1: regular rate, rhythm, no edema Cardiovascular #2: 2+ carotid (R), 2+ carotid (L), 2+ radial (R), 2+ radial (L) , 2+ dorsalis pedis (R), 2+ dorsalis pedis (L) Gastrointestinal: normal bowel sounds, non tender, soft, non-distended, no guarding, no rebound Rectal: deferred Genitourinary: normal inspection, no CVA tenderness Musculoskeletal: back normal, gait/station normal, normal range of motion, non- tender Neurologic: alert, oriented x3, responsive, motor strength/tone normal, sensory intact, speech normal Psychiatric: judgement/insight normal, memory normal, mood/affect normal, no suicidal/homicidal ideation Reflexes: 3+ bicep (R), 3+ bicep (L), 3+ tricep (R), 3+ tricep (L), 3+ knee (R) , 3+ knee (L) Skin: normal color, no rash, warm/dry, well hydrated Lymphatic: no adenopathy Medical Decision Making Diagnostic Impression: Primary Impression: Bronchitis ER Course Hospital Course 38-year-old male presents to ED complaining of cough, wheezing Differential diagnoses include: URI, bronchitis, asthma/COPD, pneumonia Clinical course Patient placed on stretcher. After initial history and physical I ordered CXR, prednisone and nebulizer treatment. Chest x-ray shows no consolidation or infiltrate shey reassessment patient states cough and symptoms have improved. Stress findings with patient. Encouraged patient uses inhaler and replete the prednisone course. We will prescribe promethazine/codeine. Safe for discharge and close outpatient follow-up. Patient can follow-up with his PMD Diagnosis - bronchitis Stable and discharged home with prescriptions for Rx promethazine/codeine. Instructed to followup with PMD. Return to ED if symptoms recur or worsen Chest X-Ray Diagnostic Results Chest X-Ray Diagnostic Results : Chest X-Ray Ordered: Yes # of Views/Limited/Complete: 1 View Indication: Shortness of Breath EP Interpretation: Yes Interpretation: no consolidation, no effusion, no pneumothorax, no acute cardiopulmonary disease Impression: No acute disease Electronically Signed by: Electronically signed by Eric Stearns MD Last Vital Signs Date Time Temp Pulse Resp B/P (MAP) Pulse Ox O2 Delivery O2 Flow Rate FiO2 10/19/18 17:19 98.5 114 20 120/69 95 Room Air 10/19/18 17:00 21 Status: improved Disposition: HOME, SELF-CARE Condition: Stable Scripts Codeine/Promethazine Hcl* (PROMETHAZINE-CODEINE SYRUP*) 118 Ml Syrup 5 ML ORAL Q6H PRN for For Cough, #118 ML 0 Refills Prov: Eric Stearns MD 10/19/18 Referrals: [facility],REFERRING (PCP) Patient Instructions: Acute Bronchitis, [id number] Eric Stearns MD Oct 19, 2018 17:48
--- NOTE | 2018-10-20 10:36 | Diagnostic Imaging Report ---
Indication: Cough Technique: One view of the chest Comparison: 03/27/2018 Findings: Lungs and pleural spaces are clear. Heart size is normal. No significant change Impression: No acute process
== END 2018-10-19 17:19 | disposition home or self-care (01) ==
LOC: EMR 15:58
DX: J45.909 Unspecified asthma, uncomplicated (principal)
CPT/HCPCS: 71045; 94640; 94664; 99284; J7512

== ENCOUNTER 2018-11-01 20:57 | Emergency (ER) | payer OTHER ==
[~2018-11-01] VITALS: Ht 167.6 cm; Wt 98.9 kg
--- NOTE | 2018-11-01 21:15 | NUR ---
ED Nurse Note: RECIEVED PT ON THA FROM HOME WITH C/O FLU LIKE S/S SINCE 10/13, HEADACHE, MUSCLE ACHES, SOB WITH NON-PRODUCTIVE COUGH AND INTERMITTENT ABD PAIN, PT RATES PAIN AT 7/10, DENIES CP, SOB NOTED AT REST, PT ASSISTED TO MONITORING, WILL RESUME CARE ORDERED AND CONTINUE TO CLOSELY MONITOR.
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
[2018-11-01] MEDS ORDERED: Morphine Sulfate 4mg/ml Inj (IV/IM USE ONLY) IVP ONE (21:30)
[2018-11-01] MEDS ORDERED: Ipratropium 0.02% Inh Soln 2.5ml UD HHN ONE (21:30)
[2018-11-01] MEDS ORDERED: Bacitracin Oint UD TOPIC ONE (21:30)
[2018-11-01] MEDS: Albuterol ud Inhalation HHN SCH ×3 (21:44→22:40)
[2018-11-01 21:54] LABS: APPEARANCE,URINE CLEAR; BILIRUBIN, URINE NEGATIVE (NEGATIVE); GLUCOSE, URINE (UA) NEGATIVE (NEGATIVE); KETONES,URINE NEGATIVE (NEGATIVE); LEUKOCYTE ESTERASE ,URINE 1+ (NEGATIVE); NITRITE,URINE NEGATIVE (NEGATIVE); PH,URINE 5 (4.5-8.0); PROTEIN,URINE NEGATIVE (NEGATIVE); UROBILINOGEN,URINE NORMAL MG/DL (0.0-1.0)
[2018-11-01 22:03] LABS: BASOPHILS % (AUTO) 1.1 % (0.0-2.0); COLOR,URINE YELLOW; EOSINOPHILS % (AUTO) 3.5 % (0.0-3.0); HEMATOCRIT 48.3 % (42.0-52.0); HEMOGLOBIN 16.4 G/DL (14.2-18.0); LYMPHOCYTES % (AUTO) 26.8 % (20.0-45.0); MEAN CORPUSCULAR VOLUME 86 FL (80-99); MONOCYTES % (AUTO) 8.1 % (1.0-10.0); NEUTROPHILS % (AUTO) 60.5 % (45.0-75.0); PLATELET COUNT 182 K/UL (150-450); RED BLOOD COUNT 5.63 M/UL (4.70-6.10); RED CELL DISTRIBUTION WIDTH 13.3 % (11.6-14.8); WHITE BLOOD COUNT 11.2 K/UL (4.8-10.8)
[2018-11-01 22:07] LABS: ANION GAP 8 mmol/L (5-15); BLOOD UREA NITROGEN 15 mg/dL (7-18); CALCIUM 8.1 MG/DL (8.5-10.1); CARBON DIOXIDE 27 MMOL/L (21-32); CHLORIDE 104 MMOL/L (98-107); CREATININE 1.2 MG/DL (0.55-1.30); POTASSIUM 3.9 MMOL/L (3.5-5.1); SODIUM 139 MMOL/L (136-145)
[2018-11-01 22:47] LABS: ALANINE AMINOTRANSFERASE 63 U/L (12-78); ALBUMIN 3.2 G/DL (3.4-5.0); ALBUMIN/GLOBULIN RATIO 0.9 (1.0-2.7); ALKALINE PHOSPHATASE 114 U/L (46-116); ASPARTATE AMINO TRANSFERASE 28 U/L (15-37); BILIRUBIN,TOTAL 0.5 MG/DL (0.2-1.0)
[2018-11-01 22:55] VITALS: BP 107/63
--- NOTE | 2018-11-01 23:00 | NUR ---
ED Nurse Note: PT COMPLETED SERIES OF BREATHING TREATMENTS PT HEART RATE REMAINS ELEVATED AT 120'S, MD AWARE, PT O2 SAT=99% ON RA, REMAINS WITH COUGH, PAIN DECREASED TO 5/10, AT BEDSIDE, WILL CONTINUE TO CLOSELY MONITOR.
[2018-11-02 00:15] VITALS: BP 108/58
[2018-11-02] MEDS ORDERED: Albuterol ud Inhalation HHN ONE (00:30)
--- NOTE | 2018-11-02 01:00 | NUR ---
ED Nurse Note: pt ambulated by md, tolerated poorly, tp began to severely cough and sob, md decided to admit pt, waiting for admit info, pt resting in bed, conversing with spouse at bedside, iv site patent, magnesium infusion completed, tolerated well, iv site intact, will continue to closely monitor and prepare for admission.
--- NOTE | 2018-11-02 02:45 | NUR ---
ED Nurse Note: Pt continues to rest quietly in bed, awake and alert, iv site patent, pt remains on cardiac monitoring, heart rate at about 110, no cp, no sob at rest, iv site patent, pt states pain at 7/10, pt to be transferred to another hospital for admission, will continue to closely monitor and prepare for hospital transfer.
[2018-11-02 02:58] VITALS: BP 117/73
--- NOTE | 2018-11-02 03:35 | NUR ---
ED Nurse Note: PLACED CALL TO [facility] AT [phone], VERBAL REPORT GIVEN TO AIDE SHANKS ON UNIT, PT TO GO TO ROOM 501B, WAITING FOR AMBULANCE TRANSPORT, PT CONTINUES TO C/O HAVING PAIN, MD INFORMED, WILL RE-MEDICATE WHILE WAITING FOR TRANSPORT.
[2018-11-02] MEDS ORDERED: Morphine Sulfate 4mg/ml Inj (IV/IM USE ONLY) IVP ONE (03:45)
[2018-11-02 04:05] VITALS: BP 109/68
--- NOTE | 2018-11-02 04:05 | NUR ---
ED Nurse Note: PT BEING TRANSFERRED TO ANOTHER HOSPITAL FACILITY, [id number] HAS ARRIVED FOR PT TRANSPORT, VERBAL REPORT GIVEN TO BUILDING RIGGER ESME ALONG WITH PT TRANSFER PACKET AND BELONGINGS LIST, PT SPOUSE PRESENT AND GOING ALSO, PT IS AWAKE, ALERT AND ORIENTED X 4, IV SITE PATENT, PT RECENTLY MEDICATED FOR PAIN, MEDS EFFECTIVE, PAIN LEVEL AT 4/10, NO NAUSEA, CP, OR SOB NOTED, NAD NOTED DURING D/C TO HOME.
[2018-11-02 04:15] VITALS: BP 109/68
== END 2018-11-02 04:20 | disposition short-term general hospital (02) ==
LOC: EMR 21:35
DX: J45.42 Moderate persistent asthma with status asthmaticus (principal); D72.1 Eosinophilia; Z88.0 Allergy status to penicillin; F43.10 Post-traumatic stress disorder, unspecified; F31.9 Bipolar disorder, unspecified
CPT/HCPCS: 36415; 71045; 80053; 81003; 83605; 83735; 83880; 84484; 85025; 86710; 86850; 86900; 86901; 94640; 96361; 96365; 96375; 96376; 99285; J2270; J2405

== ENCOUNTER 2020-08-08 11:31 | Outpatient (CLI) | payer MEDICAID ==
--- NOTE | 2020-08-08 15:00 | Consultation ---
DATE OF CONSULTATION: 08/08/2020 CHIEF COMPLAINT: Abdominal pain. HISTORY OF PRESENT ILLNESS: The patient is a 40-year-old male apparently had abdominal pain for a while, complained of acid reflux disease, currently on omeprazole 40 mg daily, still having acid reflux disease, complaining of indigestion. He feels as if food does not go down and stays in the stomach. Complaining of even doing exercise, he is not losing weight. Denies any nausea or vomiting. Denies any dysphagia. Denies odynophagia. Denies any melena. Denies hematochezia. Last endoscopy August of 2019 by another GI doctor which showed evidence of food retained in the stomach and examination was limited. PAST MEDICAL HISTORY: 1. PTSD. 2. Asthma. 3. Hypothyroidism. 4. Hypertriglyceridemia. 5. GERD. 6. Peptic ulcer disease. MEDICATIONS: See medication reconciliation list. PAST SURGICAL HISTORY: Finger surgery. FAMILY HISTORY: Noncontributory. SOCIAL HISTORY: The patient denies any tobacco, alcohol, or drug abuse. ALLERGIES: To penicillin. REVIEW OF SYSTEMS: As dictated above. PHYSICAL EXAMINATION: VITAL SIGNS: Temperature 97.6. Vital signs stable. HEENT: Normocephalic and atraumatic. Sclerae anicteric. NECK: Supple. No evidence of obvious lymphadenopathy. CARDIOVASCULAR: Regular rate and rhythm. Plus S1 and S2. LUNGS: Clear to auscultation bilaterally. ABDOMEN: . Soft and nontender. No rebound. No guarding. No peritoneal sign. EXTREMITIES: No cyanosis, no clubbing, no edema. ASSESSMENT: The patient is a 40-year-old male with epigastric pain, GERD symptoms not responding to PPI, also endoscopy showing retained food material in the stomach and limited. PLAN: Increase omeprazole to twice a day. We will plan to repeat endoscopy given last endoscopy was incomplete. [place] Traylor M.D. DR: Mulugeta JOB#: [id number] CC:
[2020-08-09] MEDS ORDERED: VITAMIN D325 MC1 PO (08:48)
[2020-08-09] MEDS ORDERED: MONTELUKAST SOD10 MG ORAL (08:48)
[2020-08-09] MEDS ORDERED: CYTOMEL25 MCG ORAL (08:48)
[2020-08-09] MEDS ORDERED: PREDNISONE20 MG ORAL (08:48)
[2020-08-09] MEDS ORDERED: TESSALON PERLE100 MG ORAL (08:48)
[2020-08-09] MEDS ORDERED: OMEPRAZOLE40 M1 ORAL (08:48)
[2020-08-09] MEDS ORDERED: ZOFRAN4 M3 ORAL (08:48)
[2020-08-09] MEDS ORDERED: VENTOLIN HFA18 GM INH (08:48)
[2020-08-09] MEDS ORDERED: CYCLOBENZAPRINE10 MG ORAL (08:48)
[2020-08-09] MEDS ORDERED: FLUTICASONE PRO16 G1 NASAL (08:48)
[2020-08-09] MEDS ORDERED: SYNTHROID150 MCG ORAL (08:48)
[2020-08-09] MEDS ORDERED: ALBUTEROL2.5 MG/3 M INH (08:48)
[2020-08-09] MEDS ORDERED: GEMFIBROZIL600 MG ORAL (08:48)
[2020-08-09] MEDS ORDERED: FAMOTIDINE20 MG ORAL (08:48)
== END 2020-08-08 13:31 | disposition home or self-care (01) ==
LOC: PAN 11:31
DX: R10.9 Unspecified abdominal pain (principal); E03.9 Hypothyroidism, unspecified; K21.9 Gastro-esophageal reflux disease without esophagitis; Z87.11 Personal history of peptic ulcer disease; Z79.899 Other long term (current) drug therapy; Z88.0 Allergy status to penicillin
CPT/HCPCS: G0463

== ENCOUNTER 2020-10-11 11:40 | Outpatient (CLI) | payer MEDICAID ==
[~2020-10-11 11:40] MED LIST changes: +ALBUTEROL2.5 MG/3 M INH; +CYCLOBENZAPRINE10 MG ORAL; +CYTOMEL25 MCG ORAL; +FAMOTIDINE20 MG ORAL; +FLUTICASONE PRO16 G1 NASAL; +GEMFIBROZIL600 MG ORAL; +MONTELUKAST SOD10 MG ORAL; +OMEPRAZOLE40 M1 ORAL; +SYNTHROID150 MCG ORAL; +VITAMIN D325 MC1 PO; +ZOFRAN4 M3 ORAL
== END 2020-10-11 13:40 | disposition home or self-care (01) ==
LOC: PAN 11:40
DX: R10.9 Unspecified abdominal pain (principal)
CPT/HCPCS: G0463

== ENCOUNTER → 2020-10-25 | Outpatient (CLI) | payer MEDICAID ==
--- NOTE | 2020-10-25 10:10 | General Progress Note ---
Subjective ROS Limited/Unobtainable: Yes Allergies: Coded Allergies: PENICILLINS (Verified Allergy, Mild, 07/23/15) Objective General Appearance: alert EENT: normal ENT inspection Neck: supple Cardiovascular: normal rate Respiratory/Chest: decreased breath sounds Abdomen: normal bowel sounds, non tender, soft Extremities: non-tender Assessment/Plan Assessment/Plan: Assessment/Plan Assessment/Plan: PAST MEDICAL HISTORY: 1. PTSD. 2. Asthma. 3. Hypothyroidism. 4. Hypertriglyceridemia. 5. GERD. 6. Peptic ulcer disease. s/p EGD ? gastroparesis 2 weeks trial of reglan>>> no improvement plan protonix BID baclofen 20 mg Qhs RTC prn [place] Traylor MD Oct 25, 2020 10:10
[2020-10-25 10:51] VITALS: BP 139/79
== END | disposition home or self-care (01) ==
LOC: PAN 08:38
DX: K21.9 Gastro-esophageal reflux disease without esophagitis (principal); E03.9 Hypothyroidism, unspecified; K27.9 Peptic ulcer, site unspecified, unspecified as acute or chronic, without hemorrhage or perforation; F43.10 Post-traumatic stress disorder, unspecified; X58.XXXA Exposure to other specified factors, initial encounter; Y92.9 Unspecified place or not applicable; J45.909 Unspecified asthma, uncomplicated; E78.1 Pure hyperglyceridemia; Z88.0 Allergy status to penicillin

== ENCOUNTER 2020-11-29 08:58 | Outpatient (CLI) | payer MEDICAID ==
[2020-11-29 09:04] VITALS: BP 126/77
[2020-11-29] MEDS ORDERED: BACLOFEN10 MG ORAL (09:07)
[2020-11-29 09:42] VITALS: BP 194/90
--- NOTE | 2020-12-01 14:39 | General Progress Note ---
Subjective ROS Limited/Unobtainable: Yes Allergies: Coded Allergies: PENICILLINS (Verified Allergy, Mild, 07/23/15) Objective General Appearance: alert EENT: normal ENT inspection Neck: supple Cardiovascular: normal rate Respiratory/Chest: decreased breath sounds Abdomen: hypoactive bowel sounds Extremities: non-tender Assessment/Plan Assessment/Plan: Assessment/Plan Assessment/Plan: PAST MEDICAL HISTORY: 1. PTSD. 2. Asthma. 3. Hypothyroidism. 4. Hypertriglyceridemia. 5. GERD. 6. Peptic ulcer disease. s/p EGD ? gastroparesis 2 weeks trial of reglan>>> no improvement plan protonix BID>>>patient stopped it baclofen 20 mg Qhs add xifaxan plan colonoscopy given father had colon cancer at age 42 per patient RTC prn [place] Traylor MD Dec 01, 2020 14:39
== END 2020-11-29 10:58 | disposition home or self-care (01) ==
LOC: PAN 08:58
DX: R10.9 Unspecified abdominal pain (principal); E03.9 Hypothyroidism, unspecified; E78.1 Pure hyperglyceridemia; K21.9 Gastro-esophageal reflux disease without esophagitis; Z87.11 Personal history of peptic ulcer disease; Z88.0 Allergy status to penicillin
CPT/HCPCS: 99212